=== PATIENT | female | born 1970 | race Caucasian/White ===

== ENCOUNTER 2020-10-24 14:50 | Emergency (ER) | payer OTHER ==
[~2020-10-24] VITALS: Ht 162.6 cm; Wt 103.9 kg
[2020-10-24 16:20] LABS: ABSOLUTE NEUTROPHILS 5.3 thou/uL (1.4-8.2); BASOPHILS 1.7 % (0.0-2.0); EOSINOPHILS 2.1 % (0.0-3.0); HEMATOCRIT 41.9 % (37.0-47.0); LYMPHOCYTES 30.3 % (24.0-44.0); MCH 31.7 pg (26.0-34.0); MCHC 33.4 g/dL (28.0-37.0); MONOCYTES 5.4 % (1.0-8.0); PLATELET COUNT 373 thou/uL (150-400); POLYS 60.5 % (36.0-66.0); RBC 4.41 mil/uL (4.20-5.00); RDW 13.7 % (10.5-14.5); WBC 8.7 thou/uL (4.0-11.0)
[2020-10-24 16:29] LABS: CALCIUM 8.8 mg/dL (8.5-10.1); CREATININE 0.9 mg/dL (0.6-1.0)
[2020-10-24 16:36] LABS: ALBUMIN 3.5 g/dL (3.4-5.0); TOTAL BILIRUBIN 0.3 mg/dL (0.2-1.0); TOTAL PROTEIN 7.1 g/dL (6.4-8.2)
[2020-10-24] MEDS ORDERED: CLEOCIN HCL150 MG PO (17:03)
[2020-10-24] MEDS ORDERED: HYDROCODON-ACE1 EAC7 PO (17:03)
[2020-10-24 17:09] VITALS: BP 134/75
== END 2020-10-24 17:09 | disposition home or self-care (01) ==
LOC: ER 14:50
PROVIDERS: Physician Assistant
DX: L02.416 Cutaneous abscess of left lower limb (principal); Z90.710 Acquired absence of both cervix and uterus; Z98.890 Other specified postprocedural states